=== PATIENT | male | born 1945 | race Caucasian/White ===

== ENCOUNTER 2016-10-24 10:48 | Day surgery (SDC) | payer MEDICARE, OTHER ==
[2016-10-24] VITALS (11 sets, daily range): BP systolic 83–155; BP diastolic 53–81; PULSE 50–56; RESP 7–18; O2SAT 90–99
[~2016-10-24] VITALS: Ht 170.2 cm; Wt 92.8 kg
[2016-10-24] MEDS: Lactated Ringer's 1,000 ML IV SCH ×2 (05:49→14:21)
--- NOTE | 2016-10-24 09:19 | PCM.HPANE ---
Patient Data Surgeon Admitting Provider: Attending Provider:Meena Goncalves MD Primary Care Physician:Luis Salazar MD Other Provider:Amauri Ngo Anesthesia Reason for Visit Bladder Tumor Ht/WT & BMI Height (Feet): 5 Height (Inches): 7 Weight (Kilograms): 93.4 Body Mass Index 32.00 Allergies Coded Allergies: No Known Allergies (Verified Allergy, Unknown, 12/15/15) Past Anesthesia History Anesthesia History: Denies:: Abnormal Airway, Anesthesia Reactions, Difficult Intubation, Fam Anesthesia Reaction Diabetes History Hx Diabetes?: No MRSA MRSA: No Medications Blood Thinner: Aspirin Hypertension Medication: Yes Home Meds Incl Beta Kayden: Yes Date Beta Kayden Taken: Oct 24, 2016 Time Beta Kayden Taken: 08:45 Reported Medications Metoprolol Succinate ER 25 Mg Tab.er.24h25 Mg PO DAILY Ref 0 10/19/16 Albuterol HFA (Proair HFA)8.5 Gm Hfa.aer.ad2 Puffs INHALATION Q4H PRN For Shortness of Breath #1 INHALER 10/19/16 Nitroglycerin SL 0.4 Mg Tab.subl0.4 Mg SL PRN For Chest Pain 10/19/16 Atorvastatin (Lipitor)40 Mg Hxydqn32 Mg PO DAILY Ref 0 10/19/16 Aspirin 81 Mg Yimwzi55 Mg PO DAILY Ref 0 10/19/16 Fluticasone/Salmeterol (Advair 250-50 Diskus)60 Puff/Inh Disk1 Puff IH BID #1 DISK Ref 0 10/19/16 Discontinued Reported Medications Lisinopril 5 Mg Tablet5 Mg PO DAILY 07/27/15 Clopidogrel Bisulfate (Plavix)75 Mg Thjkll08 Mg PO DAILY 06/13/15 Nitroglycerin SL 0.4 Mg Tab.subl0.4 Mg SL PRN For Chest Pain 06/13/15 Metoprolol Succinate ER 25 Mg Tab.er.24h25 Mg PO DAILY 06/13/15 Atorvastatin (Lipitor)40 Mg Prnzuh18 Mg PO DAILY 06/13/15 Discontinued Scripts Guaifenesin/Codeine Phosphate (Codeine-Guaifen 10-100 mg/5 ml)120 Ml Liquid5-10 Ml PO Q4H PRN cou #120 Ref 0 Prov:Lucrecia Salgado 12/18/15 Albuterol HFA (Proair HFA)8.5 Gm Hfa.aer.ad2 Puffs INHALATION Q4H cough, shortness of breath #1 INHALER Ref 0 Prov:Lucrecia Salgado 12/18/15 Ciprofloxacin 500 Mg Iavoib416 Mg PO BID uti #14 TABLET Ref 0 Prov:Lucrecia Salgado 12/18/15 Nicotine 14 mg/24 hr Patch 1 Each Patch.td241 Patch TOPICAL DAILY #30 PATCH Ref 0 Prov:Lucrecia Salgado 12/18/15 Aspirin Chew 81 Mg Flbaos75 Mg PO DAILY 90 Days Prov:Edgar Fox MD 06/19/15 History History of ENT Problems?: No HEENT History: Denies:: Cataracts Hx of Heart Problems?: Yes Cardiovascular History: Positive for:: Cardiac Surgery (stents placed 2014) Chest Pain Edema Hypertension Denies:: AICD Congestive Heart Failure Heart Murmur Pacemaker Hx of Respiratory Problem?: Yes Respiratory History: Positive for:: Asthma Use of Inhalers / NEBS Denies:: COPD Cough Emphysema Oxygen Administration Pneumonia Tuberculosis Use of C-PAP Machine Hx Neurologic Problems?: No Neurological History: Denies:: CVA Dementia Headaches Multiple Sclerosis Parkinson's Disease Seizures Hx of GI Problems?: Yes Gastrointestinal History: Denies:: Gastroesphageal Reflux (resolved w/diet) Heartburn Hepatitis Liver Disease Hx of Problems?: Yes Genitourinary History: Denies:: Kidney Stones Urinary Tract Infection Other Pertinent History: hx of bladder cancer- resection and chemo- bladder tumor current admission problem Male Hx: Positive for:: Scrotal Mass (hx spermatocele) Testicular Surgery (testicle removed) Denies:: Prostate Problems Skin History: Denies:: History Skin Disorders? Pressure Ulcers Hx Musculoskeletal Problems?: No Musculoskeletal History: Denies:: Back Injury Fibromyalgia Joint Replacement Musculoskeletal Trauma Myasthenia Gravis Osteoarthritis Hx of Psycho/Social Problems?: No Psycho Social History: Positive for:: Hx Depression Denies:: Anxiety Hx Surgeries?: Yes (4 vessel CABG, inguinal hernia, tonsils, spermatocele) Hx Any Other Health Problems?: Yes Other History: Positive for:: Cancer (bladder- current problem) Denies:: Thyroid Disease History Blood Transfusions: Positive for:: Accept Blood Products? Denies:: Blood Transfusions Hx Diabetes: No Hx Alcohol Use: NoHx Substance Use: No Smoking Status: Current Every Day Smoker Have You Smoked inLast 12 mo: Yes Stop/Bang S-Snoring: Do You Snore Loudly: Yes T-Tired: feel tired, fatigued: No O-Obsered: Observed not breath: No P-Blood Pressure: treated: Yes B- Body Mass Index > 35 kg/m2: No A- Age over 50: Yes N- Neck Large Circumference: No G- Gender Male: Yes ANAHY Total Score: 4 ANAHY Risk Assessment: High Risk, =/>3 Yes ANAHY Category 4 OutPt Procedure: Yes Risk Assessment Category Category 1A: Patient has history of documented sleep apnea, and HAS NOT received any narcotic, sedative or anesthesia administration during this stay. Category 1B: Patient has history of documented sleep apnea, and HAS received any narcotic , sedative or anesthesia administration during this stay Category 2: Patient has SUSPECTED Obstructive Sleep Apnea, and HAS received any narcotic , sedative or anesthesia administration during this stay. Category 3: Patient has SUSPECTED Obstructive Sleep Apnea and HAS NOT received narcotic, sedative or anesthesia administration during this stay. Category 4: Outpatient in Procedural Areas with known sleep apnea or who screen positive for High Risk via the STOP/BANG questionnaire. Exam Exam General Appearance: Alert, Oriented X3, Cooperative, No Acute Distress HEENT/AIRWAY: MP 2 Lungs: Clear to Auscultation, Normal Air Movement Heart: Exam Unremarkable, Regular Rate/Rhythm, No Murmurs/Rubs/Gallops Meds/Labs/Diagnostics Admission Meds Current Medications Lactated Ringer's (Lr) 1,000 ml @ 120 mls/hr Q8H20M IV Last administered on t 05:49; Start 10/24/16 at 05:00; Stop 10/24/16 at 13:19 Plan Impression Patient chart reviewed, patient interviewed and anesthestic plan with risks, benefits, and alternatives discussed, and informed consent obtained. NPO Status: 11/29@2100 ASA Physical Status: ASA3 Severe Disease Anesthetic Plan: GA Bene/Risks/Altern/Consents: Yes HP Complete Prior to Induction: Yes Alber Mathur MD Oct 24, 2016 09:19
[~2016-10-24 10:48] MED LIST: ADV250INH IH; ALBU8.5H2 INHALATION; ASPI-973 PO; LIP40 PO; Levofloxacin 500 mg/100 mL D5W IV ONE; METO25TA99 PO; NITR0.4T6 SL
[2016-10-24] MEDS ORDERED: Ketamine 10 mg/mL 20 mL Inj ONE (10:49)
[2016-10-24] MEDS ORDERED: levoFLOXacin 500 mg/100 mL D5W Premix IV ONE (11:03)
[2016-10-24] MEDS ORDERED: Lactated Ringer's 500 ML IV PRN (14:49)
[2016-10-24] MEDS ORDERED: Lactated Ringer's 1,000 ML IV SCH (14:49)
[2016-10-24] MEDS ORDERED: Ondansetron 2 mg/mL 2 mL Inj IVPUSH PRN (14:50)
[2016-10-24] MEDS ORDERED: Phenylephrine 10,000 mCg/mL Inj IVPUSH PRN (14:50)
[2016-10-24] MEDS ORDERED: HYDROmorphone 1 mg/mL Inj IVPUSH PRN (14:50)
[2016-10-24] MEDS ORDERED: Dexamethasone 4 mg/mL Inj IVPUSH PRN (14:50)
[2016-10-24] MEDS ORDERED: EPHEDrine Sulfate 50 mg/mL Inj IVPUSH PRN (14:50)
[2016-10-24] MEDS ORDERED: MetoCLOpramide 5 mg/mL 2 mL Inj IVPUSH PRN (14:50)
[2016-10-24] MEDS ORDERED: Belladonna Alk-Opium 60 mg Rectal Suppository RECTAL ONE (14:54)
[2016-10-24] MEDS ORDERED: Ondansetron 8 mg ODT Tablet PO PRN (15:05)
[2016-10-24] MEDS ORDERED: Phenazopyridine 97.5 mg Tablet PO PRN (15:05)
[2016-10-24] MEDS ORDERED: HYDROcodone-APAP 5-325 mg Tablet PO PRN (15:05)
[2016-10-24] MEDS: fentaNYL-PF 50 mCg/mL 2 mL Inj IVPUSH PRN ×2 (15:30→15:40)
--- NOTE | 2016-10-24 15:34 | PCM.ANEP1 ---
Post Anesthesia Phase 1 PACU Phase 1 Assessment Vital Signs Vital Signs Date Time Temp Pulse Resp B/P Pulse Ox O2 Delivery O2 Flow Rate FiO2 10/24/16 15:30 51 16 139/60 94 Nasal Cannula 2 10/24/16 15:15 54 16 88/64 93 Nasal Cannula 3 10/24/16 15:10 50 17 84/62 92 Nasal Cannula 3 10/24/16 15:05 54 16 91/61 98 Simple Mask 10 10/24/16 15:00 36.7 55 17 83/53 97 Simple Mask 10 10/24/16 11:29 36.6 56 18 155/71 93 Room Air Anesthetic Administered: GA Level of Alertness: Awake, talking KING's with Equal Strength: Yes Pain: No Nausea or Vomiting: No Oxygen Delivery: Simple Mask Lungs: Clear to Auscultation, Normal Air Movement Dermatome Level: Full Sensation Alber Mathur MD Oct 24, 2016 15:34
--- NOTE | 2016-10-24 15:34 | PCM.ANEP2 ---
Post Anesthesia Evaluation ASA/CMS Post Anesthesia VS in Patient's Normal Range?: Yes Resp Stable; Airway Patent?: Yes CV Function & Hydration Stable: Yes Mental Status Recovered?: Yes Pain control Satisfactory?: Yes N/V Control Satisfactory?: Yes Alber Mathur MD Oct 24, 2016 15:34
--- NOTE | 2016-10-24 23:29 | OP ---
[address] [address] OPERATIVE REPORT PATIENT: YUSUF ELIAS : 1945 MR#: [id number] ADMIT: 10/24/2016 JOB ID: [id number] DATE OF SURGERY: 10/24/2016 PROCEDURE: Transurethral resection and biopsy of bladder, as well as fulguration medium 3-5 cm total treated tissue SURGEON: Meena Goncalves MD. ANESTHESIA: General. PREOPERATIVE DIAGNOSIS(ES): History of bladder cancer, bladder erythema, bladder scars. POSTOPERATIVE DIAGNOSIS(ES): History of bladder cancer, bladder erythema, bladder scars. INDICATIONS: Patient is a 71-year-old gentleman with multiple medical problems, initially diagnosed with a large sessile bladder tumor at the time of a heart attack, treated with cauterization initially and then ultimately TURBT, unsafe to come off his Plavix; thus, was not a surgical candidate. Treated with chemotherapy and consolidation radiation with some scar tissue and scattered erythema. At most recent surveillance cystoscopy found to have a larger area of slightly more concerning erythema which warranted biopsy to determine if this is radiation changes or recurrent cancer in the form of carcinoma in situ. PROCEDURE IN DETAIL: After appropriate informed consent was obtained, patient was brought to the operating room. He received IV antibiotics prior to onset of the procedure. SCDs were placed. Adequate general anesthesia induced. He was carefully placed in dorsal lithotomy position. All pressure points carefully padded. Cleaned, prepped and draped in usual sterile fashion. Rigid scope was introduced in the patient's bladder. The old scar tissue was readily seen with a good deal of erythema surrounding these areas extending down toward the trigone medial and lateral. We used cold cup to take numerous, 8-10 specimens from throughout this erythematous area. These were handed off for permanent specimen. There was a modest amount of bleeding. We removed the cystoscope and introduced the 27-Congolese resectoscope sheath in order to use the roller ball to cauterize these areas, and great care to take care of the ureteral orifices. Hemostasis excellent. Total treated area 3-5 cm. Tolerated procedure well. The bladder was drained. He was awakened and taken in stable condition to postanesthesia care unit. [facility] SYSTEMDarrell
--- NOTE | 2016-10-26 14:58 | PATH ---
SURGICAL PATHOLOGY Attending Physician:Meena Goncalves MD CASE STATUS: Signed Out PATIENT NAME: YUSUF ELIAS PID: [id number] : 1945 DATE COLLECTED:10/24/2016 00:00 SPECIMEN: Bladder, Biopsy CLINICAL HISTORY: BLADDER TUMOR 1). BLADDER ERYTHEMA FINAL DIAGNOSIS: 1.BLADDER BIOPSY: BLADDER MUCOSA AND MUSCULARIS PROPRIA TISSUE WITH CHRONIC INFLAMMATION AND REACTIVE CHANGES. NEGATIVE FOR DYSPLASIA OR MALIGNANCY. ICD10 CODE N30.20 GROSS DESCRIPTION: The specimen is received in one formalin filled container labeled with the patient's name, sublabeled "bladder erythema" are multiple portions of tissue which aggregate to 1.0 x 1.0 x 0.4 CM. The specimen is entirely submitted in one cassette. 10/25/2016 [facility] MICRO DESCRIPTION: See diagnosis. ICD-9 CODES: CPT CODES: 1: 29269 Electronically Signed Out Ani Hogue MD [facility] Pathology [facility] [address], [place] [address] Technical component performed at [facility], [address] [place] [address] Ave[address], [place], [address]
[2017-01-15] MEDS ORDERED: NITR100 PO (11:04)
[2017-01-15] MEDS ORDERED: MIRA25TA PO (11:04)
[2017-01-15] MEDS ORDERED: OXYB10TA PO (11:04)
[2017-01-15] MEDS ORDERED: CLOP75TA3 PO (11:04)
[2017-01-15] MEDS ORDERED: LISI-571 PO (11:04)
[2017-01-25] MEDS ORDERED: SULF1TAB7 PO (10:24)
[2017-01-25] MEDS ORDERED: HYDR-4003 PO (10:25)
== END 2016-10-24 23:59 | disposition home or self-care (01) ==
LOC: SAS 10:48
PROVIDERS: ATTEND Urology
DX: N30.20 Other chronic cystitis without hematuria (principal); I25.10 Atherosclerotic heart disease of native coronary artery without angina pectoris; N18.9 Chronic kidney disease, unspecified; E78.5 Hyperlipidemia, unspecified; N40.1 Benign prostatic hyperplasia with lower urinary tract symptoms; I73.9 Peripheral vascular disease, unspecified; J45.909 Unspecified asthma, uncomplicated; K21.9 Gastro-esophageal reflux disease without esophagitis; F32.9 Major depressive disorder, single episode, unspecified; Z79.82 Long term (current) use of aspirin; Z95.1 Presence of aortocoronary bypass graft; Z87.891 Personal history of nicotine dependence; Z95.5 Presence of coronary angioplasty implant and graft; Z85.51 Personal history of malignant neoplasm of bladder
CPT/HCPCS: 52235; 88305; J7120

== ENCOUNTER 2017-01-16 06:19 | Day surgery (SDC) | payer MEDICARE, OTHER ==
[~2017-01-16] VITALS: Ht 170.2 cm; Wt 92.9 kg
[~2017-01-16 06:19] MED LIST changes: +CLOP75TA3 PO; +CeFAZolin Inj 2 GM in IV Premix 1 EACH IV ONE; +LISI-571 PO; -Levofloxacin 500 mg/100 mL D5W IV ONE; +MIRA25TA PO; +NITR100 PO; +OXYB10TA PO
[2017-01-16] MEDS ORDERED: fentaNYL-PF 50 mCg/mL 2 mL Inj ONE (06:20)
[2017-01-16 06:43] VITALS: BP 143/76; PULSE 51; RESP 20; O2SAT 90
[2017-01-16] MEDS: Lactated Ringer's 1,000 ML IV SCH ×2 (07:02→08:13)
[2017-01-16] MEDS ORDERED: Albuterol-Ipratropium 3 mL Inhalation Solution ONE (07:12)
--- NOTE | 2017-01-16 07:27 | PCM.HPANE ---
Patient Data Date of Service: Jan 16, 2017 Surgeon Admitting Provider: Attending Provider:Meena Goncalves MD Primary Care Physician:Luis Salazar MD Other Provider:Amauri Ngo Anesthesia Reason for Visit Urgency Of Urination, Frequency Of Urination Ht/WT & BMI Height (Feet): 5 Height (Inches): 7 Weight (Kilograms): 92.9 Body Mass Index 32.00 Allergies Coded Allergies: nortriptyline (Verified Allergy, Unknown, UNKNOWN, 01/15/17) Past Anesthesia History Anesthesia History: Denies:: Abnormal Airway, Anesthesia Reactions, Difficult Intubation, Fam Anesthesia Reaction Diabetes History Hx Diabetes?: No MRSA MRSA: No Medications Blood Thinner: Aspirin, Plavix Hypertension Medication: Yes (LISINOPRIL) Home Meds Incl Beta Kayden: Yes Date Beta Kayden Taken: Jan 15, 2017 Time Beta Kayden Taken: 1800 Reported Medications Lisinopril 5 Mg Tablet5 Mg PO DAILY #30 TABLET Ref 0 01/15/17 Metoprolol Succinate ER 25 Mg Tab.er.24h25 Mg PO DAILY Ref 0 10/19/16 Albuterol HFA (Proair HFA)8.5 Gm Hfa.aer.ad2 Puffs INHALATION Q4H PRN For Shortness of Breath #1 INHALER 10/19/16 Nitroglycerin SL 0.4 Mg Tab.subl0.4 Mg SL PRN For Chest Pain 10/19/16 Atorvastatin (Lipitor)40 Mg Unqjbc24 Mg PO DAILY Ref 0 10/19/16 Aspirin 81 Mg Ibytsg36 Mg PO DAILY Ref 0 10/19/16 Fluticasone/Salmeterol (Advair 250-50 Diskus)60 Puff/Inh Disk1 Puff IH BID #1 DISK Ref 0 10/19/16 Discontinued Reported Medications Clopidogrel Bisulfate (Plavix)75 Mg Bkurow24 Mg PO DAILY 30 Days Ref 0 01/15/17 Oxybutynin Chloride ER 10 Mg Tab.er.2410 Mg PO DAILY Ref 0 01/15/17 Mirabegron ER (Myrbetriq)25 Mg Yaaees21 Mg PO DAILY 01/15/17 Nitrofurantoin Monohyd/M-Cryst (MacroBid)100 Mg Zqxhgdu000 Mg PO BID Ref 0 01/15/17 History History of ENT Problems?: Yes HEENT History: Denies:: Abnormal Airway Cataracts Difficult Intubation Denture Type: Full- Upper Full- Lower Other HEENT Pertinent History: S/P TONSILLECTOMY Hx of Heart Problems?: Yes Cardiovascular History: Positive for:: Cardiac Surgery (HEART CATH W/ stents placed ) Chest Pain (HX AZ 2014, no recurrence of chest pain since stent 2014, no use of nitroglycerin) Coronary Artery Disease (s/p AZ x2 s/p angioplasty AUBREY x2 occasions - 4 vessels) Edema Hypertension (HYPERLIPIDEMIA) Peripheral Vascular (CLAUDICATION LE) Denies:: AICD Congestive Heart Failure Heart Murmur (ECHO 03/2016 EF 55%) Pacemaker Valvular Heart Disease Hx of Respiratory Problem?: Yes Respiratory History: Positive for:: Asthma COPD Use of Inhalers / NEBS Denies:: Cough Emphysema Oxygen Administration Pneumonia Tuberculosis Use of C-PAP Machine (SNORES) Other Resp Pertinent History: former smoker w/ COPD - baseline SaO2 this AM 89 -90% Hx Neurologic Problems?: Yes Neurological History: Denies:: CVA Dementia Headaches Multiple Sclerosis Parkinson's Disease Seizures TIA Hx of GI Problems?: Yes Gastrointestinal History: Positive for:: Gastroesphageal Reflux (resolved w/ diet) Denies:: Heartburn Hepatitis Other GI Pertinent History: S/P LT INGUINAL HERNIA RPR Hx of Problems?: Yes Genitourinary History: Denies:: HX of Hemodialysis (HX CHRONIC RENAL INSUFFICIENCY HX LT RENAL ATRORHY) Kidney Stones Urinary Tract Infection Other Pertinent History: Bladder cancer still present due to AZ and AUBREY placed in 2014; URGENCY/FREQUENCY OF URINATION=CURRENT PROBLEM C/OF DECREASED STREAM,DYSURIA,HEMATURIA, HX BLADDER CA S/P TURBT X3 Male Hx: Positive for:: Prostate Problems (BPH W/ LUTS) Scrotal Mass (S/P SPERMATOCELECTOMY) Testicular Surgery (S/P ORCHIECTOMY) Skin History: Denies:: History Skin Disorders? Pressure Ulcers Hx Musculoskeletal Problems?: Yes Musculoskeletal History: Positive for:: Osteoarthritis Denies:: Back Injury Joint Replacement Musculoskeletal Trauma Hx of Psycho/Social Problems?: Yes Psycho Social History: Positive for:: Hx Depression Denies:: Anxiety Hx Surgeries?: Yes (4 vessel CABG, inguinal hernia, tonsils, spermatocele, ORCHIECTOMY,HEART CAT) Hx Any Other Health Problems?: Yes Other History: Positive for:: Cancer (bladder- current problem) Hospitalization Denies:: Endocrine Disease Thyroid Disease History Blood Transfusions: Denies:: Blood Transfusions Hx Diabetes: No Hx Alcohol Use: NoHx Substance Use: No Smoking Status: Former Smoker Have You Smoked inLast 12 mo: No (Quit 2014) Stop/Bang Treated for Sleep Apnea?: No Do You Have a CPAP Machine?: No S-Snoring: Do You Snore Loudly: Yes T-Tired: feel tired, fatigued: Yes O-Obsered: Observed not breath: No P-Blood Pressure: treated: Yes B- Body Mass Index > 35 kg/m2: No A- Age over 50: Yes N- Neck Large Circumference: No G- Gender Male: Yes ANAHY Total Score: 5 ANAHY Risk Assessment: High Risk, =/>3 Yes ANAHY Category 2: Yes Risk Assessment Category Category 1A: Patient has history of documented sleep apnea, and HAS NOT received any narcotic, sedative or anesthesia administration during this stay. Category 1B: Patient has history of documented sleep apnea, and HAS received any narcotic , sedative or anesthesia administration during this stay Category 2: Patient has SUSPECTED Obstructive Sleep Apnea, and HAS received any narcotic , sedative or anesthesia administration during this stay. Category 3: Patient has SUSPECTED Obstructive Sleep Apnea and HAS NOT received narcotic, sedative or anesthesia administration during this stay. Category 4: Outpatient in Procedural Areas with known sleep apnea or who screen positive for High Risk via the STOP/BANG questionnaire. Exam Exam Vital Signs Vital Signs Date Time Temp Pulse Resp B/P Pulse Ox O2 Delivery O2 Flow Rate FiO2 01/16/17 06:43 36.4 51 20 143/76 90 Room Air General Appearance: Alert, Oriented X3, Cooperative, No Acute Distress HEENT/AIRWAY: MP 3, Neck Movement (from), Mouth Opening (3), Other (tmd3) Lungs: Diminished Heart: Exam Unremarkable, Regular Rate/Rhythm, Normal S1, Normal S2, No Murmurs /Rubs/Gallops Meds/Labs/Diagnostics Admission Meds Current Medications Lactated Ringer's (Lr) 1,000 ml @ 120 mls/hr Q8H20M IV Last administered on 07:02; Start 01/16/17 at 05:00; Stop 01/16/17 at 13:19 Albuterol/ Ipratropium (DuoNEB Inh Soln) 3 ml STK-MED ONCE .ROUTE Last administered on 3/29/17at 07:16; Start 01/16/17 at 07:12; Stop 01/16/17 at 07:13 ; Status DC Plan Impression Patient chart reviewed, patient interviewed and anesthestic plan with risks, benefits, and alternatives discussed, and informed consent obtained. NPO Status: mn ASA Physical Status: ASA4 Life Threatening Anesthetic Plan: MAC Bene/Risks/Altern/Consents: Yes HP Complete Prior to Induction: Yes Other GA backup addressed. Awareness during MAC addressed. Pt may be required by surgeon to converse during procedure. Gilberto Campbell MD Jan 16, 2017 07:27
[2017-01-16] MEDS ORDERED: Lactated Ringer's 500 ML IV PRN (07:52)
[2017-01-16] MEDS ORDERED: Bupivacaine-MPF 0.5% W/EPI 30 mL Inj INFILTRATE ONE (07:52)
[2017-01-16] MEDS ORDERED: Lactated Ringer's 1,000 ML IV SCH (07:52)
[2017-01-16] MEDS ORDERED: Gentamicin 40 mg/mL 2 mL Inj IRRIGATION ONE (07:53)
[2017-01-16] MEDS ORDERED: Vancomycin 1,000 mg Inj IRRIGATION ONE (07:53)
[2017-01-16] MEDS ORDERED: HYDROmorphone 1 mg/mL Inj IVPUSH PRN (07:55)
[2017-01-16] MEDS ORDERED: Albuterol-Ipratropium 3 mL Inhalation Solution NEB PRN (07:55)
[2017-01-16] MEDS ORDERED: fentaNYL-PF 50 mCg/mL 2 mL Inj IVPUSH PRN (07:55)
[2017-01-16] MEDS ORDERED: EPHEDrine Sulfate 50 mg/mL Inj IVPUSH PRN (07:55)
[2017-01-16] MEDS ORDERED: Dexamethasone 4 mg/mL Inj IVPUSH PRN (07:55)
[2017-01-16] MEDS ORDERED: MetoCLOpramide 5 mg/mL 2 mL Inj IVPUSH PRN (07:55)
[2017-01-16] MEDS ORDERED: Ondansetron 2 mg/mL 2 mL Inj IVPUSH PRN (07:55)
[2017-01-16] MEDS ORDERED: Phenylephrine 10,000 mCg/mL Inj IVPUSH PRN (07:55)
[2017-01-16] MEDS ORDERED: HYDROcodone-APAP 5-325 mg Tablet PO PRN (08:40)
[2017-01-16] MEDS ORDERED: Ondansetron 8 mg ODT Tablet PO PRN (08:40)
[2017-01-16 08:45] VITALS: BP 148/81; PULSE 56; RESP 16; O2SAT 90
[2017-01-16 10:00] VITALS: BP 141/67; PULSE 58; RESP 20; O2SAT 92
--- NOTE | 2017-01-16 10:07 | PCM.ANEP1 ---
Post Anesthesia Phase 1 PACU Phase 1 Assessment Date of Service: Jan 16, 2017 Vital Signs Vital Signs Date Time Temp Pulse Resp B/P Pulse Ox O2 Delivery O2 Flow Rate FiO2 01/16/17 08:45 56 16 148/81 90 Room Air 01/16/17 06:43 36.4 51 20 143/76 90 Room Air Anesthetic Administered: MAC Level of Alertness: Awake, talking KING's with Equal Strength: Yes Pain: No Pain Scale Score: 0 Nausea or Vomiting: No Oxygen Delivery: Simple Mask Lungs: Diminished Gilberto Campbell MD Jan 16, 2017 10:07
--- NOTE | 2017-01-16 10:08 | PCM.ANEP2 ---
Post Anesthesia Evaluation ASA/CMS Post Anesthesia VS in Patient's Normal Range?: Yes Resp Stable; Airway Patent?: Yes CV Function & Hydration Stable: Yes Mental Status Recovered?: Yes Pain control Satisfactory?: Yes N/V Control Satisfactory?: Yes Gilberto Campbell MD Jan 16, 2017 10:07
--- NOTE | 2017-01-17 09:29 | OP ---
[address] [address] OPERATIVE REPORT PATIENT: YUSUF ELIAS : 1945 MR#: [id number] ADMIT: 01/16/2017 JOB ID: [id number] DATE OF SURGERY: 01/16/2017 PROCEDURE: Stage I InterStim implant to include 1 transforaminal placement of a quadripolar electrode S3 nerve root and 2 fluoroscopy imaging and guidance. SURGEON: Meena Goncalves MD ANESTHESIA: Local with monitored anesthesia care IV sedation. PREOPERATIVE DIAGNOSIS(ES): Intractable urinary urgency, frequency, urge incontinence with history of bladder radiation and chemotherapy. POSTOPERATIVE DIAGNOSIS(ES): Intractable urinary urgency, frequency, urge incontinence with history of bladder radiation and chemotherapy. INDICATIONS: The patient is a 71-year-old gentleman with a history of bladder cancer treated initially with radiation therapy and chemotherapy because of other health issues developing ultimately intractable urinary urgency, frequency, urge incontinence, failing all conservative measures, electing trial of sacral neuromodulation. PROCEDURE IN DETAIL: After appropriate informed consent was obtained, the patient was brought to the operating room. He was made comfortable in the prone position. All pressure points carefully padded. Cleaned, prepped, and draped in the usual sterile fashion. Fluoroscope was brought in. Bony landmarks were then identified. Used a half/half mixture of lidocaine and Marcaine to anesthetize the skin areas of interest. We used a finder needle to locate the S3 foramen on the right. Testing revealed good toe and gwen response. This was converted over in Seldinger fashion to quadripolar electrode. Good position under fluoroscopic guidance. We had good responses at low thresholds on all four electrodes. Gwen and toe uncomfortable for the patient. We created a pocket below the right iliac crest sharply, bluntly with electrocautery. Hemostasis was excellent. We tunneled out the distal end of the sacral neural electrode to the pocket. This connection was made through the extension wire which was then tunneled out to the patient's left. Lidocaine and Marcaine was again used for anesthesia. The wound was irrigated out copiously with the antibiotic solution and closed in layers in a layer of 2-0 Vicryl, layer of 4-0 Monocryl and a layer of benzoin and Steri-Strips. The patient tolerated the procedure very well, was awakened and taken back to the one-day surgery area prior to discharge. JIMI
[2017-01-25] MEDS ORDERED: SULF1TAB7 PO (10:24)
[2017-01-25] MEDS ORDERED: HYDR-4003 PO (10:25)
== END 2017-01-16 23:59 | disposition home or self-care (01) ==
LOC: SAS 06:19
PROVIDERS: ATTEND Urology
DX: N39.41 Urge incontinence (principal); R35.0 Frequency of micturition; R35.1 Nocturia; I25.10 Atherosclerotic heart disease of native coronary artery without angina pectoris; I12.9 Hypertensive chronic kidney disease with stage 1 through stage 4 chronic kidney disease, or unspecified chronic kidney disease; N18.9 Chronic kidney disease, unspecified; I73.9 Peripheral vascular disease, unspecified; E78.5 Hyperlipidemia, unspecified; N40.1 Benign prostatic hyperplasia with lower urinary tract symptoms; N13.8 Other obstructive and reflux uropathy; K21.9 Gastro-esophageal reflux disease without esophagitis; J44.9 Chronic obstructive pulmonary disease, unspecified; F32.9 Major depressive disorder, single episode, unspecified; J45.909 Unspecified asthma, uncomplicated; Z87.891 Personal history of nicotine dependence; Z85.51 Personal history of malignant neoplasm of bladder; Z92.21 Personal history of antineoplastic chemotherapy; Z79.82 Long term (current) use of aspirin; Z79.02 Long term (current) use of antithrombotics/antiplatelets; Z95.5 Presence of coronary angioplasty implant and graft; Z86.73 Personal history of transient ischemic attack (TIA), and cerebral infarction without residual deficits; Z87.440 Personal history of urinary (tract) infections
CPT/HCPCS: 64581; 76000; C1778; J0690; J1580; J2250; J3010; J3370; J7120; J7620

== ENCOUNTER 2017-01-30 05:42 | Day surgery (SDC) | payer MEDICARE, OTHER ==
[~2017-01-30] VITALS: Ht 170.2 cm; Wt 91.7 kg
[2017-01-30] MEDS: Lactated Ringer's 1,000 ML IV SCH ×2 (05:02→07:26)
[~2017-01-30 05:42] MED LIST changes: -CLOP75TA3 PO; -CeFAZolin Inj 2 GM in IV Premix 1 EACH IV ONE; +HYDR-4003 PO; -MIRA25TA PO; -NITR100 PO; -OXYB10TA PO; +SULF1TAB7 PO
[2017-01-30] MEDS ORDERED: Ketamine 10 mg/mL 20 mL Inj ONE (05:43)
[2017-01-30] MEDS ORDERED: Propofol 10,000 mCg/mL 20 mL Inj ONE (05:43)
[2017-01-30] MEDS ORDERED: CeFAZolin Inj 2 GM in IV Premix 1 EACH IV SCH (06:00)
[2017-01-30 06:35] VITALS: BP 123/64; PULSE 51; RESP 16; O2SAT 94
[2017-01-30] MEDS ORDERED: Lactated Ringer's 1,000 ML IV SCH (07:16)
[2017-01-30] MEDS ORDERED: Lactated Ringer's 500 ML IV PRN (07:16)
--- NOTE | 2017-01-30 07:16 | PCM.HPANE ---
Patient Data Date of Service: Jan 30, 2017 Surgeon Admitting Provider: Attending Provider:Meena Goncalves MD Primary Care Physician:Luis Salazar MD Other Provider:Amauri Ngo Anesthesia Reason for Visit Urgency Of Urination, Frequency Of Urination Ht/WT & BMI Height (Feet): 5 Height (Inches): 7.00 Weight (Kilograms): 91.7 Body Mass Index 31.00 Allergies Coded Allergies: nortriptyline (Verified Allergy, Unknown, UNKNOWN, 01/15/17) Past Anesthesia History Anesthesia History: Denies:: Abnormal Airway, Anesthesia Reactions, Difficult Intubation, Fam Anesthesia Reaction Diabetes History Hx Diabetes?: No MRSA MRSA: No Medications Blood Thinner: Aspirin Hypertension Medication: Yes Home Meds Incl Beta Kayden: Yes (Metoprolol 25mg) Date Beta Kayden Taken: Jan 29, 2017 Time Beta Kayden Taken: 1000 Reported Medications Hydrocodone-Acetaminophen 5-325 mg 1 Each Tablet1 Tab PO DAILY #30 01/25/17 Sulfamethoxazole/Trimeth 800-160 mg (Bactrim DS)1 Each Tablet1 Tab PO BID #60 01/25/17 Lisinopril 5 Mg Tablet5 Mg PO DAILY #30 TABLET Ref 0 01/15/17 Metoprolol Succinate ER 25 Mg Tab.er.24h25 Mg PO DAILY Ref 0 10/19/16 Albuterol HFA (Proair HFA)8.5 Gm Hfa.aer.ad2 Puffs INHALATION Q4H PRN For Shortness of Breath #1 INHALER 10/19/16 Nitroglycerin SL 0.4 Mg Tab.subl0.4 Mg SL PRN For Chest Pain 10/19/16 Atorvastatin (Lipitor)40 Mg [id number] Mg PO DAILY Ref 0 10/19/16 Aspirin 81 Mg Nehdnx51 Mg PO DAILY Ref 0 10/19/16 Fluticasone/Salmeterol (Advair 250-50 Diskus)60 Puff/Inh Disk1 Puff IH BID #1 DISK Ref 0 10/19/16 History History of ENT Problems?: Yes HEENT History: Denies:: Abnormal Airway Cataracts Difficult Intubation Denture Type: Full- Upper Full- Lower Hx of Heart Problems?: Yes Cardiovascular History: Positive for:: Cardiac Surgery (HEART CATH W/ stents placed ) Chest Pain Edema Hypertension (HYPERLIPIDEMIA) Denies:: AICD Congestive Heart Failure Heart Murmur (ECHO 03/2016 EF 55%) Pacemaker Valvular Heart Disease Hx of Respiratory Problem?: Yes Respiratory History: Positive for:: Asthma COPD Denies:: Cough Emphysema Oxygen Administration Pneumonia Tuberculosis Use of C-PAP Machine (SNORES) Hx Neurologic Problems?: Yes Neurological History: Denies:: CVA Dementia Headaches Multiple Sclerosis Parkinson's Disease Seizures Hx of GI Problems?: Yes Gastrointestinal History: Positive for:: Gastroesphageal Reflux (resolved w/ diet) Denies:: Heartburn Hepatitis Hx of Problems?: Yes Genitourinary History: Denies:: HX of Hemodialysis (HX CHRONIC RENAL INSUFFICIENCY HX LT RENAL ATRORHY) Kidney Stones Urinary Tract Infection Male Hx: Positive for:: Prostate Problems (BPH W/ LUTS) Scrotal Mass (S/P SPERMATOCELECTOMY) Testicular Surgery (S/P ORCHIECTOMY) Skin History: Denies:: History Skin Disorders? Pressure Ulcers Hx Musculoskeletal Problems?: Yes Musculoskeletal History: Denies:: Back Injury Joint Replacement Musculoskeletal Trauma Hx of Psycho/Social Problems?: Yes Psycho Social History: Positive for:: Hx Depression Denies:: Anxiety Hx Surgeries?: Yes (4 vessel CABG, inguinal hernia, tonsils, spermatocele, ORCHIECTOMY,HEART CAT) Hx Any Other Health Problems?: Yes Other History: Positive for:: Cancer (bladder- current problem) Hospitalization Denies:: Endocrine Disease Thyroid Disease History Blood Transfusions: Positive for:: Accept Blood Products? Denies:: Blood Transfusions Hx Diabetes: No Hx Alcohol Use: NoHx Substance Use: No Smoking Status: Former Smoker Have You Smoked inLast 12 mo: No (Quit 2014) Stop/Bang S-Snoring: Do You Snore Loudly: Yes T-Tired: feel tired, fatigued: No O-Obsered: Observed not breath: No P-Blood Pressure: treated: Yes B- Body Mass Index > 35 kg/m2: No A- Age over 50: Yes N- Neck Large Circumference: No G- Gender Male: Yes ANAHY Total Score: 4 ANAHY Risk Assessment: High Risk, =/>3 Yes ANAHY Category 2: Yes Risk Assessment Category Category 1A: Patient has history of documented sleep apnea, and HAS NOT received any narcotic, sedative or anesthesia administration during this stay. Category 1B: Patient has history of documented sleep apnea, and HAS received any narcotic , sedative or anesthesia administration during this stay Category 2: Patient has SUSPECTED Obstructive Sleep Apnea, and HAS received any narcotic , sedative or anesthesia administration during this stay. Category 3: Patient has SUSPECTED Obstructive Sleep Apnea and HAS NOT received narcotic, sedative or anesthesia administration during this stay. Category 4: Outpatient in Procedural Areas with known sleep apnea or who screen positive for High Risk via the STOP/BANG questionnaire. Exam Exam Vital Signs Vital Signs Date Time Temp Pulse Resp B/P Pulse Ox O2 Delivery O2 Flow Rate FiO2 01/30/17 06:35 36.3 51 16 123/64 94 Room Air General Appearance: Alert, Oriented X3, Cooperative, No Acute Distress HEENT/AIRWAY: MP 1 Lungs: Clear to Auscultation, Normal Air Movement Heart: Exam Unremarkable, Regular Rate/Rhythm, No Murmurs/Rubs/Gallops Meds/Labs/Diagnostics Admission Meds Current Medications Lactated Ringer's (Lr) 1,000 ml @ 120 mls/hr Q8H20M IV Last administered on t 05:02; Start 01/30/17 at 05:00; Stop 01/30/17 at 13:19 Plan Impression Patient chart reviewed, patient interviewed and anesthestic plan with risks, benefits, and alternatives discussed, and informed consent obtained. NPO Status: 01/29 at noon ASA Physical Status: ASA3 Severe Disease Anesthetic Plan: MAC Bene/Risks/Altern/Consents: Yes HP Complete Prior to Induction: Yes Jorge L Peterson MD Jan 30, 2017 07:16
[2017-01-30] MEDS ORDERED: Labetalol 5 mg/mL 4 mL Inj IV PRN (07:20)
[2017-01-30] MEDS ORDERED: Phenylephrine 10,000 mCg/mL Inj IVPUSH PRN (07:20)
[2017-01-30] MEDS ORDERED: Dexamethasone 4 mg/mL Inj IVPUSH PRN (07:20)
[2017-01-30] MEDS ORDERED: EPHEDrine Sulfate 50 mg/mL Inj IVPUSH PRN (07:20)
[2017-01-30] MEDS ORDERED: Ondansetron 2 mg/mL 2 mL Inj IVPUSH PRN (07:20)
[2017-01-30] MEDS ORDERED: HYDROmorphone 1 mg/mL Inj IVPUSH PRN (07:20)
[2017-01-30] MEDS ORDERED: hydrALAZINE 20 mg/mL Inj IVPUSH PRN (07:20)
[2017-01-30] MEDS ORDERED: fentaNYL-PF 50 mCg/mL 2 mL Inj IVPUSH PRN (07:20)
[2017-01-30] MEDS ORDERED: MetoCLOpramide 5 mg/mL 2 mL Inj IVPUSH PRN (07:20)
[2017-01-30] MEDS ORDERED: Bupivacaine-MPF 0.5% W/EPI 30 mL Inj INFILTRATE ONE (07:43)
[2017-01-30] MEDS ORDERED: Vancomycin 1,000 mg Inj IRRIGATION ONE (07:47)
[2017-01-30] MEDS ORDERED: Gentamicin 40 mg/mL 2 mL Inj IRRIGATION ONE (07:48)
[2017-01-30] MEDS ORDERED: HYDROcodone-APAP 5-325 mg Tablet PO PRN (08:10)
[2017-01-30] MEDS ORDERED: Ondansetron 8 mg ODT Tablet PO PRN (08:10)
[2017-01-30 08:12] VITALS: BP 130/59; PULSE 51; RESP 18; O2SAT 96
--- NOTE | 2017-01-30 08:23 | PCM.ANEP2 ---
Post Anesthesia Evaluation ASA/CMS Post Anesthesia VS in Patient's Normal Range?: Yes Resp Stable; Airway Patent?: Yes CV Function & Hydration Stable: Yes Mental Status Recovered?: Yes Pain control Satisfactory?: Yes N/V Control Satisfactory?: Yes Jorge L Peterson MD Jan 30, 2017 08:23
[2017-01-30 08:48] VITALS: BP 107/75; PULSE 50; RESP 14; O2SAT 95
[2017-01-30 09:03] VITALS: BP 123/67; PULSE 56; RESP 14; O2SAT 96
--- NOTE | 2017-01-31 23:21 | OP ---
[address] [address] OPERATIVE REPORT PATIENT: YUSUF ELIAS : 1945 MR#: [id number] ADMIT: 01/30/2017 JOB ID: [id number] DATE OF SURGERY: 01/30/2017 SURGEON: Meena Goncalves MD PROCEDURE: Stage 2 InterStim implant to include IPG implantation and complex initial programming and set up the device. ANESTHESIA: Local with monitored anesthesia care and IV sedation. PREOPERATIVE DIAGNOSIS(ES): Intractable urinary urgency, frequency, urge incontinence, with history of radiation cystitis. POSTOPERATIVE DIAGNOSIS(ES): Intractable urinary urgency, frequency, urge incontinence, with history of radiation cystitis. INDICATIONS: The patient is a 71-year-old gentleman with history of muscle invasive bladder cancer treated by necessity initially with radiation therapy given the patient's cardiac status with intractable urinary urgency, frequency, urge incontinence, failing multiple medications, medication combinations and conservative measures, electing trial of InterStim therapy to see if this will help him regain some control of his terrible urgency and frequency. PROCEDURE IN DETAIL: After appropriate informed consent was obtained, the patient was brought to the operating room where he received IV antibiotics prior to the onset of the procedure. He was made comfortable in the prone position. All pressure points carefully padded. Cleaned, prepped, and draped in the usual sterile fashion. The right-sided buttock pocket was identified, infiltrated with half/half mixture of lidocaine, Marcaine and then incised. The extension wire was disconnected from the lead itself and then cut so the externalized portion could fall away. The internal portion was handed off. The wound itself was expanded to accommodate the size of the Medtronic 2 IPG. It was irrigated out copiously with antibiotic solution of vancomycin/gentamicin. Hemostasis was achieved with electrocautery. We attached the Medtronic 2 IPG. Gentle tug revealed a good connection. This fit nicely into the pocket. Hemostasis was good. We closed with a layer of 2-0 Vicryl, 4-0 Monocryl and then benzoin and Steri-Strips with antibiotic irrigation between each layer. He was brought back to the one-day surgery area where the device itself was turned on, found to be functioning within normal parameters. It was set up initially with a rate of 14, pulse width of 210. Program one set up is 0 negative and 3 positive. Program two is 1 negative, 3 positive. Program three is 2 negative and 0 positive. Program four is 3 negative and 0 positive. MTDD
== END 2017-01-30 23:59 | disposition home or self-care (01) ==
LOC: SAS 05:42
PROVIDERS: ATTEND Urology
DX: R39.15 Urgency of urination (principal); R35.0 Frequency of micturition; I10 Essential (primary) hypertension; J45.909 Unspecified asthma, uncomplicated; J44.9 Chronic obstructive pulmonary disease, unspecified; K21.9 Gastro-esophageal reflux disease without esophagitis; F32.9 Major depressive disorder, single episode, unspecified; Z79.82 Long term (current) use of aspirin; Z79.899 Other long term (current) drug therapy; Z87.891 Personal history of nicotine dependence